=== PATIENT | male | born 1985 | race Caucasian/White ===

== ENCOUNTER 2017-01-07 07:19 | Emergency (ER) | payer SELFPAY ==
[~2017-01-07] VITALS: Ht 172.7 cm; Wt 97.0 kg
[~2017-01-07 07:19] MED LIST: TYLE3 PO; Z.0.NO CURRENT MEDS
[2017-01-07 07:25] VITALS: BP 183/106; PULSE 82; RESP 16; TEMP 97.9; O2SAT 99
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
== END 2017-01-07 08:05 | disposition home or self-care (01) ==
LOC: PHED 07:19
DX: J06.9 Acute upper respiratory infection, unspecified (principal)
CPT/HCPCS: 99282